=== PATIENT | female | born 1935 | race Caucasian/White ===

== ENCOUNTER 2019-05-29 13:33 | Emergency (ER) | payer MEDICARE, OTHER, SELFPAY ==
[2019-05-29 13:38] VITALS: PULSE 90; RESP 16; O2SAT 95; BMI 35.5
--- NOTE | 2019-05-29 13:40 | DI.RAD.S_ITS ---
PROCEDURE: XR HAND LT MIN 3V INDICATIONS: injury TECHNIQUE: 3 views of the hand(s) acquired. COMPARISON: None. FINDINGS: Bones: There are acute oblique minimally displaced fractures through the diaphyses of the left fourth and fifth proximal phalanges. A metallic ring projects over the diaphysis of the third proximal phalanx. There are severe degenerative changes of the first through fifth metacarpal phalangeal and interphalangeal joints, as well as above the first carpometacarpal joint. Bones are diffusely demineralized. Soft tissues: No suspicious soft tissue calcifications. IMPRESSION: Acute minimally displaced oblique fractures through the diaphyses of the left fourth and fifth proximal phalanges. 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 Dictated by: Elías Pat M.D. on 05/29/2019 at 14:16 Approved by: Elías Pat M.D. on 05/29/2019 at 14:33
[2019-05-29 14:58] VITALS: BP 162/73; PULSE 83; RESP 19; TEMP 36.9; O2SAT 97
--- NOTE | 2019-05-29 19:10 | ED.UPPEXIN ---
HPI - Extremity Injury (Upper) <TUAN Madera - Last Filed: 05/29/19 19:19> General Chief Complaint: Extremity Injury, Upper Stated Complaint: fell and hurt left hand Time Seen by Provider: 05/29/19 14:51 Source: patient Mode of arrival: Ambulatory Limitations: no limitations History of Present Illness HPI narrative: The patient is an 84-year-old female nonsmoker with history of hypertension who presents with a chief complaint of left finger pain. Fell off her raised toilet seat yesterday, and she and her fingers when she fell. She has not taken anything for the pain or applied ice. She complains of bruising in the area. She denies any bleeding. She states she has not hurt her left hand prior. She denies any left wrist elbow or shoulder pain. She did not hit her head. Denies any neck or back pain. She states that I do not need to evaluate anything other than her hand. Related Data Home Medications Medication Instructions Recorded Confirmed Metamucil Thaxton 369 gm PO PRN PRN #0 09/09/16 05/29/19 paroxetine HCl [Paxil] 40 mg PO DAILY #0 09/09/16 05/29/19 ranitidine HCl [Zantac] 150 mg PO BID #0 09/09/16 05/29/19 Ocuvite Lutein and Zeaxanthin 1 cap PO DAILY #0 12/15/16 05/29/19 levothyroxine 0.15 mg PO QAM #0 12/15/16 05/29/19 atenolol 25 mg PO DAILY #0 12/22/16 05/29/19 Allergies Allergy/AdvReac Type Severity Reaction Status Date / Time morphine [MORPHINE] Allergy Unknown Verified 05/29/19 13:38 Penicillins [PENICILLINS] Allergy Unknown REACTION Verified 05/29/19 13:38 UNKNOWN Review of Systems <TUAN Madera - Last Filed: 05/29/19 19:19> Review of Systems Narrative: GENERAL: Denies chills, fatigue, malaise, fever, sweats. HEENT: Denies sinus pain, ear pain, sore throat, difficulty swallowing, dizziness. RESPIRATORY: Denies dyspnea, cough, wheezing, hemoptysis, sputum. CARDIOVASCULAR: Denies chest pain, palpitations, orthopnea, edema, GASTROINTESTINAL: Denies nausea, vomiting, abdominal pain, diarrhea, constipation, melena. : Denies dysuria, frequency, incontinence, hematuria, urinary retention. MUSCULOSKELETAL: See HPI SKIN: See HPI NEUROLOGIC: Denies weakness, headache, numbness, change in speech, confusion, seizures, incoordination. PSYCHIATRIC: No concerning psychosocial issues. 12 point review of systems is negative except for those stated above Exam <TUAN Madera - Last Filed: 05/29/19 19:19> Narrative Exam Narrative: GENERAL: This is a well-nourished, well-developed patient, no acute distress HEAD: Atraumatic. Normocephalic. No temporal or scalp tenderness. EYES: Pupils equal round and reactive. Extraocular motions intact. No scleral icterus. No injection or drainage. ENT: Nose without bleeding, purulent drainage or septal hematoma. Throat without erythema, tonsillar hypertrophy or exudate. Uvula midline. Airway patent. NECK: Trachea midline. No JVD or lymphadenopathy. Supple, nontender, no meningeal signs. CARDIOVASCULAR: Regular rate and rhythm RESPIRATORY: No cough. No increased respiratory effort. No accessory muscle use. EXTREMITIES: Pain of palpation to proximal phalanx left 4th and 5th digits. No pain to palpation left hand. Capillary refill less than 2 seconds all fingers left hand. Positive radial pulse left hand. BACK: Nontender without deformity or crepitance. No flank tenderness. NEURO: AOx3. SKIN: Ecchymosis noted over left 5th and 4th digits. No laceration or abrasion noted on left hand. Initial Vital Signs Initial Vital Signs: Vital Signs Pulse Rate 90 05/29/19 13:38 Respiratory Rate 16 05/29/19 13:38 Pulse Oximetry 95 05/29/19 13:38 <Santa Martinez DO - Last Filed: 05/31/19 07:13> Initial Vital Signs Initial Vital Signs: Vital Signs Pulse Rate 90 05/29/19 13:38 Respiratory Rate 16 05/29/19 13:38 Pulse Oximetry 95 05/29/19 13:38 Procedures <TUAN Madera - Last Filed: 05/29/19 19:19> Orthopedic Splinting/Casting Injury #1: Side: left Upper Extremity Injury Location: finger Upper Extremity Immobilizer: aluminum form splint and kris tape Post splinting neuro exam: intact Post splinting vascular exam: intact Placed by: Nursing Course <TUAN Madera - Last Filed: 05/29/19 19:19> Orders Ordered: ED Orders 05/29/19 13:40 XR hand LT min 3V Stat Vital Signs Vital signs: Vital Signs - 8 hr 05/29/19 13:38 05/29/19 14:58 Temperature 98.4 F Pulse Rate 90 83 Respiratory Rate 16 19 Blood Pressure [Right Wrist] 162/73 H Pulse Oximetry 95 97 <Santa Martinez DO - Last Filed: 05/31/19 07:13> Orders Ordered: ED Orders 05/29/19 13:40 XR hand LT min 3V Stat Vital Signs Vital signs: Vital Signs - 8 hr 05/29/19 13:38 05/29/19 14:58 Temperature 98.4 F Pulse Rate 90 83 Respiratory Rate 16 19 Blood Pressure [Right Wrist] 162/73 H Pulse Oximetry 95 97 MDM - Extremity Injury (Upper) <TUAN Madera - Last Filed: 05/29/19 19:19> Imaging Data Hand x-ray: Radiologist's Impression: [place] [address] XRay Report Signed Patient: Delma Hernandez#: [id number] : 5Acct:[id number] Age/Sex: 84 / FDate of Service: 05/29/19 Loc: ED Accession Number: [id number] Procedure: XR hand LT min 3V Ordering Provider: Santa Martinez D.O. PROCEDURE: XR HAND LT MIN 3V INDICATIONS: injury TECHNIQUE: 3 views of the hand(s) acquired. COMPARISON: None. FINDINGS: Bones: There are acute oblique minimally displaced fractures through the diaphyses of the left fourth and fifth proximal phalanges. A metallic ring projects over the diaphysis of the third proximal phalanx. There are severe degenerative changes of the first through fifth metacarpal phalangeal and interphalangeal joints, as well as above the first carpometacarpal joint. Bones are diffusely demineralized. Soft tissues: No suspicious soft tissue calcifications. IMPRESSION: Acute minimally displaced oblique fractures through the diaphyses of the left fourth and fifth proximal phalanges. 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 Dictated by: Elías Pat M.D. on 05/29/2019 at 14:16 Approved by: Elías Pat M.D. on 05/29/2019 at 14:33 [facility] Narrative Medical decision making narrative: The patient is an 84-year-old female who presents with a chief complaint of left hand pain after falling off a toilet yesterday. X-ray indicates fractures are acute minimally displaced oblique fractures who the diaphysis of the left 4th and 5th proximal phalanges. She is neurovascularly intact. She was splinted. She denied pain medication throughout her stay in the emergency department and denied any other pain other than her hand. Encouraged follow-up with primary care provider as well as Orthopedics if necessary. Patient has no questions or concerns upon discharge and states understanding of return precautions as well as follow-up care Discharge Plan Departure Patient Disposition: Home Clinical Impression: Finger fracture, left Qualifiers: Encounter type: initial encounter Finger: little finger Fracture type: closed Phalanx: distal Fracture alignment: displaced Qualified Code(s): S62.637A - Displaced fracture of distal phalanx of left little finger, initial encounter for closed fracture Finger fracture Qualifiers: Encounter type: initial encounter Finger: ring finger Fracture type: closed Phalanx: distal Fracture alignment: displaced Laterality: left Qualified Code(s): S62.635A - Displaced fracture of distal phalanx of left ring finger, initial encounter for closed fracture Discharge Date/Time: 05/29/19 17:08 Instructions: DI for Finger Fracture, How To Perform RICE (Rest, Ice, Compress, Elevate) Activity Restrictions/Additional Instructions: Today x-ray shows that you have fracture your fingers Please follow-up with primary care provider. I've also given you contact information for [facility] Please use rest ice compression elevation as well as [id number] pain medications as needed and able Please come back to the emergency department for any acute concerns such as decreased circulation to her fingers. Prescriptions: No Action paroxetine HCl [Paxil] 40 MG tablet 40 mg PO DAILY Qty: 0 RF: 0 ranitidine HCl [Zantac] 150 MG tablet 150 mg PO BID Qty: 0 RF: 0 Metamucil Thaxton 575 GM powder 369 gm PO PRN PRN (Reason: Constipation) Qty: 0 RF: 0 levothyroxine 150 MCG tablet 0.15 mg PO QAM Qty: 0 RF: 0 Ocuvite Lutein and Zeaxanthin 1 EACH capsule 1 cap PO DAILY Qty: 0 RF: 0 atenolol 50 MG tablet 25 mg PO DAILY Qty: 0 RF: 0 Referrals: [facility] [Provider Group] Che Patino PA-C [Primary Care Provider] -
== END 2019-05-29 17:08 | disposition home or self-care (01) ==
PROVIDERS: Emergency Provider Nurse Practitioner Family; PCP Physician Assistant
DX: S62.637A Displaced fracture of distal phalanx of left little finger, initial encounter for closed fracture (principal); S62.635A Displaced fracture of distal phalanx of left ring finger, initial encounter for closed fracture; W18.11XA Fall from or off toilet without subsequent striking against object, initial encounter
CPT/HCPCS: 73130; 99282; 99283